=== PATIENT | male | born 1970 | race Caucasian/White ===

== ENCOUNTER 2022-10-12 11:52 | Outpatient (OUT) | payer BC, SELFPAY ==
[2022-10-12 12:41] LABS: Microalbumin Urine Random 2.2 mg/dL (<=30.0)
[2022-10-12 12:41] LABS: Estimated Average Glucose 140 mg/dL; Glycohemoglobin A1C 6.5 % (4.5-6.2)
[2022-10-12 12:44] LABS: Alanine Aminotransferase 43 U/L (16-63); Albumin Globulin Ratio 0.8; Albumin Level 3.7 g/dL (3.4-5.0); Alkaline Phosphatase 75 U/L (46-116); Anion Gap 11.6; Aspartate Amino Transferase 42 U/L (15-37); BUN Creatinine Ratio 19.8; Bilirubin Total 1.2 mg/dL (0.2-1.0); Carbon Dioxide 25.4 mmol/L (21.0-32.0); Chloride 107 mmol/L (98-107); Chol HDL Ratio 3.9; Cholesterol 166 mg/dL (<=200); Estimated GFR (African America >60 (>=60); Estimated GFR (Non-African Ame >60 (>=60); Globulin 4.6 g/dL; Glucose 138 mg/dL (74-106); HDL Cholesterol 43 mg/dL (40-60); LDL Cholesterol Calculated 104.8 mg/dL; Sodium 140 mmol/L (136-145); Total Protein 8.3 g/dL (6.4-8.2); Triglycerides 91 mg/dL (<=150); VLDL CHOLESTEROL 18.2 mg/dL
== END 2022-10-12 11:53 | disposition home or self-care (01) ==
PROVIDERS: PCP Family Medicine; Visit Provider Family Medicine
DX: E11.65 Type 2 diabetes mellitus with hyperglycemia (principal); E78.00 Pure hypercholesterolemia, unspecified
CPT/HCPCS: 36415; 80053; 80061; 82043; 83036